=== PATIENT | male | born 1950 | race Caucasian/White ===

== ENCOUNTER → 2023-04-26 | Emergency (ER) | payer OTHER ==
[~2023-04-26] MED LIST: HYDROCODONE/APAP 5/325 MG TAB ONE; IBUPROFEN 200 MG TAB PO ONE
--- NOTE | 2023-04-26 18:05 | RAD REPORT ---
EXAM DESCRIPTION: CT - Head C Spine Mpr Wo Con - 04/26/2023 5:39 pm CLINICAL HISTORY: Head and neck pain COMPARISON: None. TECHNIQUE: Computed axial tomography of the head and cervical spine was obtained. Sagittal and coronal reconstruction was performed. All CT scans are performed using dose optimization technique as appropriate and may include automated exposure control or mA/KV adjustment according to patient size. FINDINGS: 10 centimeter area of encephalomalacia right frontal and right temporal lobes. No intracranial bleed. An extra-axial fluid collection is not present. Fluid within the visualized sinuses and mastoids is not seen A cervical fracture is not visualized. No dislocation is noted. Mild posterior subluxation C3 on C4. Mild posterior subluxation C5 on C6. Disc bulge and osteophytes C3-4 resulting in mild narrowing right neural foramina Disc bulge and osteophytes C4-5 results in mild to moderate narrowing of the right neural foramina Disc bulge and osteophytes C5-6 result in mild to moderate narrowing of the neural foramina bilateral ly. Disc space narrowing present. No significant central spinal stenosis IMPRESSION: No acute intracranial abnormality is seen. A cervical fracture is not visualized. 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
--- NOTE | 2023-04-26 18:54 | ER ---
Nurse's Notes [facility] Name: Lazaro Beckett Age: 72 yrs Sex: Male : 1950 Arrival Date: 04/26/2023 Time: 16:41 Bed 15 Private MD: Diagnosis: Neck pain, headache Presentation: 04/26 17:07 Chief complaint: Patient states: STATES HAS NECK PAIN X 4 DAYS. STATES TODAY PAIN WAS db WORSE. HX OF LEFT SIDE WEAKNESS FROM STROKE. DENIES RECENT INJURY. STATES DID FALL 1 MONTH AGO. Coronavirus screen: Vaccine status: Patient reports being unvaccinated. Client denies travel out of the [place] in the last 14 days. At this time, the client does not indicate any symptoms associated with coronavirus-19. Ebola Screen: Patient negative for fever greater than or equal to 101.5 degrees Fahrenheit, and additional compatible Ebola Virus Disease symptoms Patient denies exposure to infectious person. Patient denies travel to an Ebola-affected area in the 21 days before illness onset. No symptoms or risks identified at this time. Initial Sepsis Screen: Does the patient meet any 2 criteria? No. Patient's initial sepsis screen is negative. Does the patient have a suspected source of infection? No. Patient's initial sepsis screen is negative. Risk Assessment: Do you want to hurt yourself or someone else? Patient reports no desire to harm self or others. Onset of symptoms was April 26, 2023. 17:07 Method Of Arrival: Wheelchair db 17:07 Acuity: JEREMIAH 3 db Triage Assessment: 17:08 General: Appears in no apparent distress. comfortable, Behavior is calm, cooperative. db Pain: Complains of pain in head and neck. Historical: - Allergies: 17:08 No Known Allergies; db - PMHx: 17:08 Transient cerebral ischemia; db - Immunization history:: Adult Immunizations unknown. - Social history:: Smoking status: Patient denies any tobacco usage or history of. Screenin:10 [facility] ED Fall Risk Assessment (Adult) History of falling in the last 3 months, tl4 including since admission Yes- fall prone (multiple falls) (3 pts) Confusion or Disorientation No (0 pts) Intoxicated or Sedated No (0 pts) Impaired Gait Yes (1 pt) Mobility Assist Device Used Yes (1 pt) Altered Elimination No (0 pt) Score/Fall Risk Level 3 or more points = High Risk Oriented to surroundings, Maintained a safe environment, Educated pt \T\ family on fall prevention, incl call for assistance when getting out of bed, Assessed \T\ reinforced patient's understanding of fall precautions, Provided non-skid footwear, Hourly rounding (assess needs \T\ fall precautionary measures) done. Abuse screen: Denies threats or abuse. Denies injuries from another. Nutritional screening: No deficits noted. Tuberculosis screening: No symptoms or risk factors identified. Assessment: 18:20 Reassessment: No changes from previously documented assessment. Patient and/or family ll1 updated on plan of care and expected duration. Pain level reassessed. Patient is alert, oriented x 3, equal unlabored respirations, skin warm/dry/pink. 19:09 Neuro: Level of Consciousness is awake, alert, obeys commands, Oriented to person, tl4 place, time, situation, Park Activities Coordinator are equal bilaterally Gait is Pt is wheelchair bound. Speech is normal, Facial symmetry appears normal. Vital Signs: 17:07 BP 160 / 86; Pulse 75; Resp 18; Temp 97; Pulse Ox 97% on R/A; Weight 86.18 kg; Height 5 db ft. 9 in. ; Pain 6/10; 19:10 BP 170 / 69; Pulse 74; Resp 18; Pulse Ox 96% on R/A; Pain 8/10; tl4 17:07 Body Mass Index 28.06 (86.18 kg, 175.26 cm) db 17:07 Pain Scale: Adult db 19:10 Pain Scale: Adult tl4 Jasiel Coma Score: 19:10 Eye Response: spontaneous(4). Motor Response: obeys commands(6). Verbal Response: tl4 oriented(5). Total: 15. ED Course: 16:50 Patient arrived in ED. mg5 16:51 Miriam Ac MD is Attending Physician. sp3 17:08 Triage completed. db 17:08 Arm band placed on Patient placed in waiting room. db 17:35 CT Head C Spine In Process Unspecified. EDMS 18:20 Patient placed in an exam room, on a stretcher. ll1 18:39 Logdahl, Sean is Primary Nurse. tl4 19:11 Patient has correct armband on for positive identification. Placed in gown. Bed in low tl4 position. Call light in reach. Side rails up X2. Provided Education on: ED process. Door closed. Noise minimized. Lights dimmed. Warm blanket given. 19:12 No provider procedures requiring assistance completed. tl4 19:12 Patient did not have IV access during this emergency room visit. tl4 Administered Medications: 18:57 Drug: HYDROcodone-acetaminophen PO 5 mg-325 mg 2 tabs PO once Route: PO; tl4 19:13 Follow up: Response: No adverse reaction tl4 18:57 Drug: Ibuprofen PO 600 mg PO once Route: PO; tl4 19:13 Follow up: Response: No adverse reaction tl4 Medication: 19:10 VIS not applicable for this client. tl4 Outcome: 18:54 Discharge ordered by . sp3 19:12 Discharged to home via wheelchair, tl4 19:12 Condition: stable 19:12 Discharge instructions given to patient, Instructed on discharge instructions, follow up and referral plans. medication usage, Demonstrated understanding of instructions, follow-up care, medications, 19:12 Patient left the ED. tl4 Signatures: Dispatcher [employer] EDPercy Hernandez, RN RN ll1 Miriam Ac MD MD sp3 Marga Willingham, ALEA RN Mellisa Finnegan mg5 Sean Nava tl4
--- NOTE | 2023-04-26 18:54 | EDPHYS ---
Physician Documentation [facility] Name: Lazaro Beckett Age: 72 yrs Sex: Male : 1950 Arrival Date: 04/26/2023 Time: 16:41 Bed 15 Private MD: ED Physician Miriam Ac HPI: 04/26 18:49 This 72 yrs old Male presents to ER via Wheelchair with complaints of Neck Problem - sp3 NECK TO HEAD PAIN. 18:49 72-year-old male with a history of prior CVA with chronic left-sided deficits now sp3 presents to the ED with chief complaint lower posterior headache and neck pain worse with movement. Denies any fever, injury, neurological deficits that are new, upper extremity paresthesia or pain or weakness. On review of systems he denies trauma, fever, URI symptoms, anterior neck pain, chest pain, shortness of breath, back pain, abdominal pain, nausea, vomiting, diarrhea, syncope, near syncope, new neurological deficits, or any other signs or symptoms on ROS at this time.. Historical: - Allergies: 17:08 No Known Allergies; db - PMHx: 17:08 Transient cerebral ischemia; db - Immunization history:: Adult Immunizations unknown. - Social history:: Smoking status: Patient denies any tobacco usage or history of. ROS: 18:51 Constitutional: Negative for fever, chills, and weight loss, Eyes: Negative for injury, sp3 pain, redness, and discharge, ENT: Negative for injury, pain, and discharge, Cardiovascular: Negative for chest pain, palpitations, and edema, Respiratory: Negative for shortness of breath, cough, wheezing, and pleuritic chest pain, Abdomen/GI: Negative for abdominal pain, nausea, vomiting, diarrhea, and constipation, Back: Negative for injury and pain, MS/Extremity: Negative for injury and deformity, Skin: Negative for injury, rash, and discoloration, Psych: Negative for depression, anxiety, suicide ideation, homicidal ideation, and hallucinations, Allergy/Immunology: Negative for hives, rash, and allergies, Endocrine: Negative for neck swelling, polydipsia, polyuria, polyphagia, and marked weight changes, Hematologic/Lymphatic: Negative for swollen nodes, abnormal bleeding, and unusual bruising, 18:51 All other systems are negative, Exam: 18:51 Constitutional: This is a well developed, well nourished patient who is awake, alert, sp3 and in no acute distress. Head/Face: Normocephalic, atraumatic. Eyes: Pupils equal round and reactive to light, extra-ocular motions intact. Lids and lashes normal. Conjunctiva and sclera are non-icteric and not injected. Cornea within normal limits. Periorbital areas with no swelling, redness, or edema. ENT: Nares patent. No nasal discharge, no septal abnormalities noted. External auditory canals are clear. Oropharynx with no redness, swelling, or masses, exudates, or evidence of obstruction, uvula midline. Mucous membranes moist. Chest/axilla: Normal chest wall appearance and motion. Nontender with no deformity. No lesions are appreciated. Cardiovascular: Regular rate and rhythm with a normal S1 and S2. No gallops, murmurs, or rubs. Normal PMI, no JVD. No pulse deficits. Respiratory: Lungs have equal breath sounds bilaterally, clear to auscultation and percussion. No rales, rhonchi or wheezes noted. No increased work of breathing, no retractions or nasal flaring. Abdomen/GI: Soft, non-tender, with normal bowel sounds. No distension or tympany. No guarding or rebound. No evidence of tenderness throughout. Back: No spinal tenderness. No costovertebral tenderness. Full range of motion. Skin: Warm, dry with normal turgor. Normal color with no rashes, no lesions, and no evidence of cellulitis. MS/ Extremity: Pulses equal, no cyanosis. Neurovascular intact. Full, normal range of motion. Psych: Awake, alert, with orientation to person, place and time. Behavior, mood, and affect are within normal limits. 18:51 Neck: Mild pain to palpation of musculature on right greater than left side of the neck particular in the upper trapezius muscle. Full range of motion noted. No pain on axial load. , 18:52 Neuro: Left-sided upper and lower extremity weakness noted this is chronic., sp3 Vital Signs: 17:07 BP 160 / 86; Pulse 75; Resp 18; Temp 97; Pulse Ox 97% on R/A; Weight 86.18 kg; Height 5 db ft. 9 in. ; Pain 6/10; 19:10 BP 170 / 69; Pulse 74; Resp 18; Pulse Ox 96% on R/A; Pain 8/10; tl4 17:07 Body Mass Index 28.06 (86.18 kg, 175.26 cm) db 17:07 Pain Scale: Adult db 19:10 Pain Scale: Adult tl4 Grace Coma Score: 19:10 Eye Response: spontaneous(4). Motor Response: obeys commands(6). Verbal Response: tl4 oriented(5). Total: 15. MDM: 17:11 Patient medically screened. sp3 18:52 Data reviewed: vital signs, nurses notes, radiologic studies. ED course: 72-year-old sp3 male with isolated muscular neck pain and posterior headache. CT scan of the head is normal and CT scan of the neck demonstrates foraminal stenosis. Differential diagnosis includes musculoskeletal pain versus nerve induced pain. ICH, meningitis, encephalitis, CVA have been ruled out clinically and with imaging. Will administer [place] 2 tabs and ibuprofen for pain control and discharge patient to his PCP for outpatient MRI as indicated. A copy of his CT scan today has also been given. Will discharge him home on diclofenac p.o. as pain control.. 04/26 17:11 Order name: CT Head C Spine; Complete Time: 18:24 sp3 Administered Medications: 18:57 Drug: HYDROcodone-acetaminophen PO 5 mg-325 mg 2 tabs PO once Route: PO; tl4 19:13 Follow up: Response: No adverse reaction tl4 18:57 Drug: Ibuprofen PO 600 mg PO once Route: PO; tl4 19:13 Follow up: Response: No adverse reaction tl4 Disposition Summary: 04/26/23 18:54 Discharge Ordered Notes: Location: Home sp3 Condition: Stable sp3 Diagnosis - Neck pain, headache sp3 Followup: sp3 - With: Private Physician - When: Upon discharge from the Emergency Department - Reason: Continuance of care Discharge Instructions: - Discharge Summary Sheet sp3 - Cervical Sprain sp3 Forms: - Medication Reconciliation Form sp3 - Thank You Letter sp3 - Antibiotic Education sp3 - Prescription Opioid Use sp3 - Patient Portal Instructions sp3 - Leadership Thank You Letter sp3 Prescriptions: - Diclofenac Sodium 75 mg Oral Tablet Sustained Release - take 1 tablet ORAL route 2 times per day; 30 tablet; Refills: 0, Product sp3 Selection Permitted Signatures: Dispatcher [employer] EDMS Miriam Ac MD MD sp3 Marga Willingham, ALEA RN db Logdahl, Sean tl4 Corrections: (The following items were deleted from the chart) 18:52 18:51 Constitutional: This is a well developed, well nourished patient who is awake, sp3 alert, and in no acute distress. Head/Face: Normocephalic, atraumatic. Eyes: Pupils equal round and reactive to light, extra-ocular motions intact. Lids and lashes normal. Conjunctiva and sclera are non-icteric and not injected. Cornea within normal limits. Periorbital areas with no swelling, redness, or edema. ENT: Nares patent. No nasal discharge, no septal abnormalities noted. External auditory canals are clear. Oropharynx with no redness, swelling, or masses, exudates, or evidence of obstruction, uvula midline. Mucous membranes moist. Chest/axilla: Normal chest wall appearance and motion. Nontender with no deformity. No lesions are appreciated. Cardiovascular: Regular rate and rhythm with a normal S1 and S2. No gallops, murmurs, or rubs. Normal PMI, no JVD. No pulse deficits. Respiratory: Lungs have equal breath sounds bilaterally, clear to auscultation and percussion. No rales, rhonchi or wheezes noted. No increased work of breathing, no retractions or nasal flaring. Abdomen/GI: Soft, non-tender, with normal bowel sounds. No distension or tympany. No guarding or rebound. No evidence of tenderness throughout. Back: No spinal tenderness. No costovertebral tenderness. Full range of motion. Skin: Warm, dry with normal turgor. Normal color with no rashes, no lesions, and no evidence of cellulitis. MS/ Extremity: Pulses equal, no cyanosis. Neurovascular intact. Full, normal range of motion. Psych: Awake, alert, with orientation to person, place and time. Behavior, mood, and affect are within normal limits. sp3
[2023-04-26 22:22] VITALS: BP 170/69; TEMP 97; O2SAT 96
== END ==
LOC: ER 16:41
DX: M54.2 Cervicalgia (principal); R51.9 Headache, unspecified; I69.354 Hemiplegia and hemiparesis following cerebral infarction affecting left non-dominant side
CPT/HCPCS: 70450; 72125; 99283